=== PATIENT | female | born 1970 | race Caucasian/White ===

== ENCOUNTER 2020-07-16 16:14 | Emergency (ER) | payer SELFPAY ==
[2020-07-16 16:22] VITALS: BP 155/99; PULSE 112; RESP 20; TEMP 36.7; O2SAT 98
[2020-07-16] MEDS: ONDANSETRON HCL ODT 4 MG TABLET 8 MG SUBLINGUAL (16:56)
--- NOTE | 2020-07-16 17:08 | ED.NAVMDI ---
HPI - Nausea/Vomiting/Diarrhea General Chief complaint: Nausea/Vomiting/Diarrhea Stated complaint: Vomiting/Diarrhea Time Seen by Provider: 07/16/20 16:35 Source: patient and RN notes reviewed Mode of arrival: ambulatory Limitations: no limitations History of Present Illness HPI Narrative: Patient presents today complaining of watery diarrhea, nausea, and vomiting. She reports multiple episodes of each. Symptoms began last night. She had dinner at a restaurant last night. No one else in her family have also become sick, even the people that had the same food as she. Patient had 4 doses of Imodium today starting at 630 this morning. Her last episode of vomiting and diarrhea was around 1130 to noon today. So far in the last 24 hours, she has had 2 popsicles to eat/drink. She tried a small sip of water but felt some increased nausea and has not tried again. Denies fever, abdominal pain, or any other symptoms. MD elicited complaint: nausea, vomiting and diarrhea Related Data Home Medications Medication Instructions Recorded Confirmed epinephrine [Primatene Mist] 1 puff INHALATION Q4H PRN 07/16/20 07/16/20 Allergies Allergy/AdvReac Type Severity Reaction Status Date / Time No Known Allergies Allergy Verified 07/16/20 16:42 Review of Systems Review of Systems: Narrative: CONSTITUTIONAL: Denies body aches, fever, chills, or sweats. EYES: Denies visual changes, redness, or discharge. ENT: Denies rhinorrhea, congestion, sore throat, or otalgia. CARDIOVASCULAR: Denies chest pain, palpitations, or edema. RESPIRATORY: Denies cough or dyspnea. GASTROINTESTINAL: Denies abdominal pain. + Nausea, vomiting, diarrhea GENITOURINARY: Denies dysuria or hematuria. SKIN: Denies rash, itching, or wounds. MUSCULOSKELETAL: Denies back pain, joint pain, or myalgia. NEUROLOGIC: Denies headache, numbness, tingling, or weakness. PSYCH: Denies depression or anxiety. PMFSH Comments At time of signature, I have reviewed and agree with nursing past medical, surgical, social and family history unless otherwise noted. Please see nursing chart for further information. There is no relevant family history pertinent to the presenting complaint Exam Narrative: Exam Narrative: GENERAL: Well-appearing, well-nourished, and in no acute distress. HEAD: Normocephalic, atraumatic. EYES: EOMI. No redness or drainage. Conjunctivae normal. ENT: Mucous membranes pink and moist. NECK: Normal AROM. Supple. No lymphadenopathy. CHEST: No respiratory distress. Clear to auscultation. HEART: Regular rate and rhythm. No murmur appreciated. Normal peripheral pulses. ABDOMEN: Soft, nontender, nondistended, normal active bowel sounds. MUSCULOSKELETAL: No bony tenderness. EXTREMITIES: Normal range of motion. No edema. SKIN: Warm, dry, no rash. Capillary refill normal. Normal skin turgor. NEURO: No focal deficits. Alert and oriented x3. Gait steady. PSYCH: Normal affect. No signs of depression or anxiety. Course Course Emergency Course: 1729: After Zofran, patient has had almost a full can of clear soda and is doing well. Will discharge home with rx for nausea medication and anticipatory guidance. Vital Signs Vital signs: Vital Signs Temperature 98.1 F 07/16/20 16:22 Pulse Rate 112 H 07/16/20 16:22 Respiratory Rate 20 07/16/20 16:22 Blood Pressure 155/99 H 07/16/20 16:22 Pulse Oximetry 98 07/16/20 16:22 Temperature 98.1 F 07/16/20 16:22 Pulse Rate 112 H 07/16/20 16:22 Respiratory Rate 20 07/16/20 16:22 Blood Pressure 155/99 H 07/16/20 16:22 Pulse Oximetry 98 07/16/20 16:22 Reviewed. Pt has been instructed to follow up with her PCP regarding her elevated blood pressure today. MDM - Nausea/Vomiting/Diarrhea Differential Diagnosis Differential diagnosis: Likely food poisoning, gastroenteritis and dehydration Critical Care Time Critical Care Time Critical Care Time: No Discharge Plan Discharge Clinical Impression:
[2020-07-16 17:15] VITALS: BP 130/82
== END 2020-07-16 17:37 | disposition home or self-care (01) ==
PROVIDERS: Emergency Provider Nurse Practitioner
DX: R11.2 Nausea with vomiting, unspecified (principal); R19.7 Diarrhea, unspecified; J45.909 Unspecified asthma, uncomplicated
CPT/HCPCS: 99213; A9270; G0463

== ENCOUNTER 2021-04-09 10:09 | Emergency (ER) | payer BC, SELFPAY ==
[2021-04-09 10:15] VITALS: BP 186/92; PULSE 92; RESP 18; TEMP 37.3; O2SAT 100
--- NOTE | 2021-04-09 10:23 | ED.SKABFB ---
HPI - Skin/Abscess/Foreign Bdy General Chief complaint: Skin/Abscess/Foreign Body Stated complaint: Rash on chest/neck and ear noise Time Seen by Provider: 04/09/21 10:24 Source: patient and RN notes reviewed Mode of arrival: ambulatory Limitations: no limitations History of Present Illness HPI narrative: 50-year-old female presents with concern for a rash that has been present for several weeks. She reports has been worsening. She reports a rash on her chest, bilateral arms, nipples. She denies rash under her breast. She reports the rash is very itchy. Reports she has tried many tnxv-imc-kzvnnei remedies without relief. Reports some skin flaking. In a separate complaint she reports bilateral ear popping and cracking, worse on the right. Reports she has seasonal allergies and symptoms started with seasonal allergy symptoms, reports this is intermittent chronic nasal congestion, rhinorrhea. Reports she uses Flonase nasal spray daily. She denies ear pain, drainage, hearing changes. MD complaint: rash Related Data Home Medications Medication Instructions Recorded Confirmed epinephrine [Primatene Mist] 1 puff INHALATION Q4H PRN 07/16/20 04/09/21 Allergies Allergy/AdvReac Type Severity Reaction Status Date / Time No Known Allergies Allergy Verified 07/16/20 16:42 Review of Systems Review of Systems: Narrative: CONSTITUTIONAL: Denies malaise, chills, sweats, or fever. EYES: Denies visual changes, redness, or discharge. ENT: Reports chronic rhinorrhea, congestion, ear crackling and popping. Denies sinus pain, otalgia or sore throat. CARDIOVASCULAR: Denies chest pain, palpitations, or edema. RESPIRATORY: Denies cough or dyspnea. GASTROINTESTINAL: Denies abdominal pain, nausea, vomiting, diarrhea SKIN: Reports itchy rash on chest, arms MUSCULOSKELETAL: Denies myalgia. NEUROLOGIC: Denies headache. All systems reviewed & are unremarkable except as noted in HPI and below PMFSH Social History Social History Gender identity (if verbalized by the patient): Female Comments At time of signature, agree with nursing past medical, surgical, social and family history. There is no relevant family history pertinent to the presenting complaint Exam Narrative: Exam Narrative: GENERAL: Well-appearing, well-nourished, and in no acute distress. HEAD: Normocephalic, atraumatic. EYES: PERRLA, conjunctivae clear, and EOMI. ENT: Nares clear. Mucous membranes moist. TM not visible due to excessive cerumen; no tragal tenderness. Oropharynx not erythematous without lesions. Tonsils not enlarged and without exudate, no drooling, no hoarseness, no trismus, uvula midline. NECK: Supple. No lymphadenopathy CHEST: Clear to auscultation. No respiratory distress. HEART: Regular rate and rhythm. SKIN: Warm, dry. Large patches of confluent plaque, erythema with flakiness noted to upper chest, scattered patches of erythema and plaque with flakiness to the noted to bilateral arms, small areas of erythema plaque noted to bilateral nipples. NEURO: Alert and oriented x3. PSYCH: Normal mood and affect Course Course Emergency Course: Patient is aware of diagnosis, understands and agrees to treatment plan. Anticipatory guidance given. Patient agrees to follow-up as directed and is aware of reasons to seek care at the emergency department. Portions of this record may have been created with voice recognition software Vital Signs Vital signs: Vital Signs Temperature 99.1 F 04/09/21 10:15 Pulse Rate 92 04/09/21 10:15 Respiratory Rate 18 04/09/21 10:15 Blood Pressure 186/92 H 04/09/21 10:15 Pulse Oximetry 100 04/09/21 10:15 Temperature 99.1 F 04/09/21 10:15 Pulse Rate 92 04/09/21 10:15 Respiratory Rate 18 04/09/21 10:15 Blood Pressure 186/92 H 04/09/21 10:15 Pulse Oximetry 100 04/09/21 10:15 Reviewed. Patient has history of hypertension, currently untreated MDM - Skin/Abscess/Foreign Bdy [facility] Narrative Medical de
== END 2021-04-09 10:44 | disposition home or self-care (01) ==
PROVIDERS: Emergency Provider Nurse Practitioner
DX: L25.9 Unspecified contact dermatitis, unspecified cause (principal); I10 Essential (primary) hypertension; J45.909 Unspecified asthma, uncomplicated
CPT/HCPCS: 99213; G0463

== ENCOUNTER 2024-07-26 08:01 | Emergency (ER) | payer OTHER, SELFPAY ==
--- NOTE | ~2024-07-26 | CT_ITS ---
EXAMINATION: CT abdomen pelvis wo con DATE: 07/26/2024 10:46 INDICATION: Left flank pain TECHNIQUE: Computed tomography (CT) of the abdomen and pelvis was performed without intravenous contr ast. Automated exposure control and iterative reconstruction technique were employed. The dose-length product was 1571.17 mGy-cm. COMPARISON: None FINDINGS: Lung bases are clear. Heart size is normal. No pericardial or pleural effusion. Cholecystectomy clips at the gallbladder fossa. Diffuse hepatic steatosis. Spleen, pancreas and right adrenal gland are no rmal. 2.3 cm less than fluid attenuation left adrenal adenoma. Bilateral nonobstructing nephrolithias is with the largest stones measuring 6 x 3 mm at the lower pole of the left kidney and 3 mm the lower pole of the right kidney. No ureteral stones or hydronephrosis. Bladder is normal. Anteverted uterus and bilateral adnexa are unremarkable. Bowels including the appendix are normal. No free intraperito maria del carmen gas or fluid. No pathologically enlarged abdominal or pelvic lymphadenopathy. Mild lumbar and lo wer thoracic spondylosis. IMPRESSION: 1. Bilateral nonobstructing nephrolithiasis. Reviewed, dictated and finalized at location A.
[2024-07-26 08:07] VITALS: BP 167/94; PULSE 105; RESP 17; TEMP 36.6; O2SAT 99
[2024-07-26 08:59] LABS: Basophils Absolute Auto 0.1 K/mm3 (0.0-0.1); Basophils Percent Auto 0.5 % (0.2-1.2); Eosinophils Absolute Auto 0.4 K/mm3 (0-0.3); Eosinophils Percent Auto 3.6 % (0-4.4); Hematocrit 40.3 % (37.0-47.0); Hemoglobin 13.8 g/dL (12.0-15.0); Immature Granulocyte Absolute 0.05 K/mm3 (0.00-0.031); Immature Granulocyte Percent A 0.4 % (0-0.5); Lymphocytes Absolute Auto 2.23 K/mm3 (0.9-3.2); Mean Corpuscular HGB Conc 34.2 g/dl (32-36); Mean Corpuscular Hemoglobin 31.9 pg (26-34); Mean Corpuscular Volume 93.3 fl (80-100); Mean Platelet Volume 10.6 fl (7.4-10.4); Monocytes Absolute Auto 0.7 K/mm3 (0.1-0.6); Monocytes Percent Auto 5.6 % (2.6-8.5); Neutrophils Absolute Auto 8.3 K/mm3 (1.3-6.7); Neutrophils Percent Auto 70.9 % (45.5-73.1); Platelet Count Result 341 k/mm3 (150-375); Red Blood Count 4.32 M/mm3 (4.2-5.4); Red Cell Distribution Width 12.4 % (11.5-14.5); White Blood Count 11.7 K/mm3 (4.5-10.0)
--- NOTE | 2024-07-26 09:01 | PC.NURSE ---
Bedside preg test positive. Showed MD simmons test. See new order for add on serum hcg
[2024-07-26 09:04] LABS: BEDSIDEPREGUCG Positive (Negative)
[2024-07-26 09:09] LABS: Add Urine Microscopic? YES; Appearance Urine Cloudy (Clear); Bacteria Urine 4+ /hpf; Bilirubin Urine Negative (Negative); Blood Urine Trace (Negative); Color Urine Yellow (Yellow); Glucose Urine UA Negative (Negative); Ketones Urine Negative (Negative); Leukocyte Esterase Ur 1+ LEU/UL (Negative); Nitrate Urine Negative (Negative); Non Pathogenic Casts 0-2; Protein Urine Negative (Negative); Specific Grav Ur 1.014 (1.001-1.035); Squamous Epithelial Cell Urine Many /hpf (Few); Urobilinogen Urine 0.2 mg/dL (<2.0); WBC Urine 21-50 /hpf (0-3); pH Urine 6.5 (5.0-9.0)
[2024-07-26 09:10] LABS: Alanine Aminotransferase 25 U/L (6-35); Albumin Level 4.3 g/dL (3.5-5.1); Alkaline Phosphatase 89 U/L (38-126); Anion Gap 10 mmol/L (4-12); Aspartate Amino Transferase 25 U/L (14-36); Bilirubin,Total 0.5 mg/dL (0.2-1.3); Blood Urea Nitrogen 19 mg/dL (7-17); Calcium 9.2 mg/dL (8.4-10.2); Carbon Dioxide 25 mmol/L (22-30); Chloride 104 mmol/L (98-107); Estimated CRCL calculation 58 ml/min; Estimated Glomerular Filt Rate 43; Glucose 135 mg/dL (65-110); Potassium 3.7 mmol/L (3.4-5.0); Sodium 139 mmol/L (137-145)
[2024-07-26 09:16] VITALS: BP 127/82; PULSE 80; RESP 24; O2SAT 97
[2024-07-26 09:31] VITALS: BP 135/72; PULSE 74; RESP 30; O2SAT 96
[2024-07-26 09:45] LABS: Beta HCG Quantitative 4.48 mIU/ML
[2024-07-26 09:47] VITALS: BP 130/99; PULSE 77; RESP 14; O2SAT 95
[2024-07-26 10:55] VITALS: BP 137/100; PULSE 78; RESP 16; O2SAT 99
[2024-07-26] MEDS: SODIUM CHLORIDE 0.9% IV 2,000 ML 999 ML IV CONT (10:56)
[2024-07-26] MEDS: HYDROmorphone HCL INJ (*CRX) 1 MG/ML SYR IV PUSH (10:56)
[2024-07-26 11:26] VITALS: BP 125/63; PULSE 67; RESP 14; O2SAT 98
--- NOTE | 2024-07-26 12:14 | ED_ITS ---
HPI - General Adult General Chief complaint: Urogenital-Female Stated complaint: L flank pain Time Seen by Provider: 07/26/24 08:17 History of Present Illness HPI narrative: This is a 53-year-old female presenting with 2 days of left-sided flank pain. It is a dull stabbing pain in left flank. It is nonradiating 5 out 10 intensity and comes and goes. She says this feels similar to kidney stone she has had past. No exacerbating alleviating factors. Patient denies fevers chills nausea vomiting chest pain difficulty breathing or abdominal pain. No urinary symptoms. Related Data Home Medications Medication Instructions Recorded Confirmed albuterol sulfate 90 mcg/actuation inhalation 06/20/24 07/17/24 aerosol inhaler amlodipine 5 mg tablet 5 mg PO DAILY 06/20/24 07/17/24 clobetasol 0.05 % topical ointment topical 06/20/24 07/17/24 escitalopram oxalate 10 mg tablet 10 mg PO 06/20/24 07/17/24 fluticasone fur. 100 mcg-umeclid 1 inh inhalation DAILY 06/20/24 07/17/24 62.5 mcg-vilant 25 mcg inhalat.powder (Trelegy Ellipta) losartan 50 mg tablet 50 mg PO 06/20/24 07/17/24 meloxicam 15 mg tablet 15 mg PO 06/20/24 07/17/24 metformin 500 mg tablet,extended mg PO 06/20/24 07/17/24 release 24 hr montelukast 10 mg tablet 10 mg PO 06/20/24 07/17/24 valacyclovir 500 mg tablet 500 mg PO 06/20/24 07/17/24 varenicline 1 mg tablet 1 mg PO 06/20/24 07/17/24 Allergies Allergy/AdvReac Type Severity Reaction Status Date / Time No Known Allergies Allergy Verified 07/26/24 08:02 [facility] Past Medical History Medical History Asthma Hyperlipidemia Hypertension PCOS (polycystic ovarian syndrome) Prediabetes Surgical History Surgical History History of cholecystectomy Family History Family History Mother Heart disease Acute myocardial infarction Father Heart disease Acute myocardial infarction Social History Social History Smoking status: Current every day smoker Tobacco type: cigarettes Alcohol intake: current Alcohol use details: rare Substance use: never Substance use type: does not use Do You Feel Safe in your Home?: Yes Lack of Transportation: No Lack of Food: Never True Current Housing: I Have Housing Concerned About Future Housing: No Difficulty Paying Gas/Electric Bills: No Difficulty Paying for Meds: No Currently Unemployed: No Education: High School Diploma/GED Difficulty w/ Childcare or Family Care: No Living arrangements: with family Occupation/Education: occupation Gender identity (if verbalized by the patient): Female Exam Narrative: APPEARANCE: No apparent distress. Obese Head: atraumatic. EYES: EOMI, NOSE: Atraumatic NECK: Trachea midline RESPIRATORY: No increased rate of breathing clear to auscultation CARDIOVASCULAR: RRR, No peripheral edema ABDOMINAL: Soft nontender no guarding rebound no CVA tenderness MUSCULOSKELETAl: No obvious deformities NEURO: Alert. Moving 4/4 extremities SKIN:: Warm, dry. Normal color PSYCHIATRIC: Normal affect Course Vital Signs Vital signs: Vital Signs Temperature 97.8 F 07/26/24 08:07 Pulse Rate 105 H 07/26/24 08:07 Respiratory Rate 17 07/26/24 08:07 Blood Pressure 167/94 H 07/26/24 08:07 Pulse Oximetry 99 07/26/24 08:07 Oxygen Delivery Room Air 07/26/24 08:07 Temperature 97.8 F 07/26/24 08:07 Pulse Rate 67 07/26/24 11:26 Respiratory Rate 14 07/26/24 11:26 Blood Pressure 125/63 07/26/24 11:26 Pulse Oximetry 98 07/26/24 11:26 Oxygen Delivery Room Air 07/26/24 08:07 Medical Decision Making MDM Narrative Medical decision making narrative: -Course: 53-year-old female presenting with left-sided flank pain. CT abdomen pelvis without evidence of ureterolithiasis. Urine indicative of infection. Patient will be treated for uti /mild pyelonephritis. WBC 11.7. Vital signs stable. On re-evaluation patient is resting comfortably in bed. Results were discussed with the patient she is comfortable being discharged. Incidentally the patient was found have a positive urine pregancy and an hCG of 4.48. She was instructed to follow-up with Dr. Recinos for further workup for possible neoplasm. Patient states she has not had a menstrual cycle in 3 years. unlikely. -DDX includes but is not limited to: Kidney stone, kidney infection, muscle strain, neoplasm -Co-morbidities complicating care: Morbid obesity, hx of with kidney stones -Independent interpretation of studies: White count 1.7 BUN 19, creatinine 1.3 Urine with 21-50 white blood cells +1 leuk esterase. +bacteria. Patient be treated for urinary tract infection CT abdomen pelvis showed bilateral nonobstructing nephrolithiasis -Interventions: 1 L normal saline, 1 mg Dilaudid -Shared decision making / Disposition: Discharge -RX cefdinir, Motrin Tylenol Vital Signs Vital Signs: Vital Signs Temperature 97.8 F 07/26/24 08:07 Pulse Rate 105 H 07/26/24 08:07 Respiratory Rate 17 07/26/24 08:07 Blood Pressure 167/94 H 07/26/24 08:07 Pulse Oximetry 99 07/26/24 08:07 Oxygen Delivery Room Air 07/26/24 08:07 Temperature 97.8 F 07/26/24 08:07 Pulse Rate 67 07/26/24 11:26 Respiratory Rate 14 07/26/24 11:26 Blood Pressure 125/63 07/26/24 11:26 Pulse Oximetry 98 07/26/24 11:26 Oxygen Delivery Room Air 07/26/24 08:07 Lab Data 07/26/24 08:40 07/26/24 08:40 Labs: Lab Results 07/26/24 07/26/24 Range/Units 08:40 09:01 WBC 11.7 H (4.5-10.0) K/mm3 RBC 4.32 (4.2-5.4) M/mm3 Hgb 13.8 (12.0-15.0) g/dL Hct 40.3 (37.0-47.0) % MCV 93.3 (80-100) fl MCH 31.9 (26-34) pg MCHC 34.2 (32-36) g/dl RDW 12.4 (11.5-14.5) % Plt Count 341 (150-375) k/mm3 MPV 10.6 H (7.4-10.4) fl Immature Gran % (Auto) 0.4 (0-0.5) % Neut % (Auto) 70.9 (45.5-73.1) % Lymph % (Auto) 19.0 (18.3-44.2) % [place] % (Auto) 5.6 (2.6-8.5) % Eos % (Auto) 3.6 (0-4.4) % Baso % (Auto) 0.5 (0.2-1.2) % Lymph # (Auto) 2.23 (0.9-3.2) K/mm3 [place] # (Auto) 0.7 H (0.1-0.6) K/mm3 Eos # (Auto) 0.4 H (0-0.3) K/mm3 Baso # (Auto) 0.1 (0.0-0.1) K/mm3 Abs Immat Gran (auto) 0.05 H (0.00-0.031) K/mm3 Absolute Neuts (auto) 8.3 H (1.3-6.7) K/mm3 Absolute Nucleated RBC 0.000 (0.0-0.012) K/mm3 Nucleated RBC % 0.0 (0.0-0.2) % Sodium 139 (137-145) mmol/L Potassium 3.7 (3.4-5.0) mmol/L Chloride 104 (98-107) mmol/L Carbon Dioxide 25 (22-30) mmol/L Anion Gap 10 (4-12) mmol/L BUN 19 H (7-17) mg/dL Creatinine 1.30 H (0.7-1.0) mg/dL Estim Creat Clear Calc 58 ml/min Estimated GFR 43 L (59 - ) Glucose 135 H (65-110) mg/dL Calcium 9.2 (8.4-10.2) mg/dL Total Bilirubin 0.5 (0.2-1.3) mg/dL AST 25 (14-36) U/L ALT 25 (6-35) U/L Alkaline Phosphatase 89 (38-126) U/L Total Protein 8.0 (6.3-8.2) g/dL Albumin 4.3 (3.5-5.1) g/dL Beta HCG, Quant 4.48 mIU/ML Urine Color Yellow (Yellow) Urine Appearance Cloudy H (Clear) Urine pH 6.5 (5.0-9.0) Ur Specific [place] 1.014 (1.001-1.035) Urine Protein Negative (Negative) mg/dL Urine Glucose (UA) Negative (Negative) mg/dL Urine Ketones Negative (Negative) mg/dL Ur Blood (Man) Trace (Negative) Urine Nitrate Negative (Negative) Urine Bilirubin Negative (Negative) Urine Urobilinogen 0.2 (<2.0) mg/dL Leukocyte Esterase Rfl 1+ H (Negative) ENRRIQUE/UL Urine RBC 3-5 H (0-2) /hpf Urine WBC 21-50 H (0-3) /hpf Ur Squamous Epith Cells Many H (Few) /hpf Urine Bacteria 4+ H /hpf Urine Casts 0-2 POC Urine HCG, Qual Positive (Negative) Discharge Plan Discharge Clinical Impression: Acute flank pain, UTI (urinary tract infection), Elevated serum hCG Patient Disposition: Home, Self-Care Condition: Stable Instructions: Antibiotic Form, Urinary Tract Infection in Women (DC), Flank Pain (ED) Additional Instructions: You were seen in the emergency department for flank pain. Your CT did not show any kidney stones. You do have a urinary tract infection. Please complete the antibiotics as instructed. Use Motrin and Tylenol for pain. Incidentally have a slight elevation in her hormone. Please follow-up with Dr. Recinos for further workup. Prescriptions: New ibuprofen 800 mg tablet 800 mg PO TID PRN (Reason: pain) 7 Days Qty: 21 0RF acetaminophen 500 mg tablet 1,000 mg PO TID PRN (Reason: tommy) 7 Days Qty: 42 0RF cefdinir 300 mg capsule 300 mg PO Q12H Qty: 14 0RF No Action escitalopram oxalate 10 mg tablet 10 mg PO metformin 500 mg tablet extended release 24 hr PO albuterol sulfate 90 mcg/actuation HFA aerosol inhaler inhalation montelukast 10 mg tablet 10 mg PO losartan 50 mg tablet 50 mg PO meloxicam 15 mg tablet 15 mg PO clobetasol 0.05 % ointment topical valacyclovir 500 mg tablet 500 mg PO Trelegy Ellipta 100-62.5-25 mcg blister with device 1 inh inhalation DAILY amlodipine 5 mg tablet 5 mg PO DAILY varenicline 1 mg tablet 1 mg PO Follow-up/Referrals: Benja,Reina Calle APRN [Primary Care Provider] - Greg Recinos MD [Physician] - 1 Week (Elevated HCG)
--- NOTE | 2024-08-08 11:41 | PC.NURSE ---
Stop time for normal saline infusion. 07/26/24 at 1257.
== END 2024-07-26 12:58 | disposition home or self-care (01) ==
PROVIDERS: Emergency Provider Emergency Medicine; PCP Nurse Practitioner Family
DX: N39.0 Urinary tract infection, site not specified (principal); R87.89 Other abnormal findings in specimens from female genital organs; I10 Essential (primary) hypertension; E78.5 Hyperlipidemia, unspecified; E28.2 Polycystic ovarian syndrome; E66.01 Morbid (severe) obesity due to excess calories; Z68.42 Body mass index [BMI] 45.0-49.9, adult; J45.909 Unspecified asthma, uncomplicated; R73.03 Prediabetes; F17.210 Nicotine dependence, cigarettes, uncomplicated; Z87.442 Personal history of urinary calculi; Z90.49 Acquired absence of other specified parts of digestive tract; Z79.84 Long term (current) use of oral hypoglycemic drugs; Z79.899 Other long term (current) drug therapy
CPT/HCPCS: 36415; 74176; 80053; 81001; 81025; 84702; 85025; 87086; 87088; 96361; 96374; 99284; J1171; J7030

== ENCOUNTER 2024-08-30 15:24 | Outpatient (CLI) | payer OTHER, SELFPAY ==
--- NOTE | 2024-08-30 15:30 | ECG_ITS ---
Test Date: 2024-08-30 15:51:53 Measurements Intervals [place] Rate: 76 P: 22 ND: 157 QRS: 13 QRSD: 88 T: 58 QT: 389 QTc: 438 Interpretive Statements SINUS RHYTHM LOW QRS VOLTAGE IN PRECORDIAL LEADS CANNOT R/O SEPTAL INFARCT, AGE INDETERMINATE BORDERLINE ST-T WAVE ABNORMALITY- HIGH LATERAL LEADS BASELINE ARTIFACT- I, II, III, AVR, AVL, AVF, V1-V6 ABNORMAL ECG No previous ECG available for comparison Electronically Signed On 08-30-2024 16:13:32 [facility] by Balaji Edwards D.O.
== END 2024-08-30 15:25 | disposition home or self-care (01) ==
LOC: ANHSURGERY 15:30
PROVIDERS: PCP Nurse Practitioner Family; Visit Provider Student in an Organized Health Care Education/Training Program
DX: Z01.818 Encounter for other preprocedural examination (principal); D25.9 Leiomyoma of uterus, unspecified; I10 Essential (primary) hypertension; R94.31 Abnormal electrocardiogram [ECG] [EKG]
CPT/HCPCS: 36415; 86850; 86900; 86901; 93005